=== PATIENT | female | born 1970 | race Caucasian/White ===

== ENCOUNTER 2021-08-30 06:18 | Emergency (ER) | payer SELFPAY ==
[2021-08-30] MEDS ORDERED: Sodium Chloride 0.9% 10 ML Syringe FLUSH PRN (07:03)
[2021-08-30] MEDS ORDERED: Sodium Chloride 0.9% 1,000 ML IV STA (07:03)
[2021-08-30] MEDS ORDERED: Ondansetron 4 MG/2 ML SDV IVPUSH ONE (07:03)
[2021-08-30] MEDS ORDERED: HYDROmorphone 1 MG/ML Syringe IVPUSH ONE (07:05)
[2021-08-30] MEDS ORDERED: Famotidine 20 MG/2 ML SDV IVPUSH ONE (07:05)
[2021-08-30] MEDS ORDERED: Iopamidol 612 MG/ML 100 ML Bottle IVPUSH ONE (07:31)
[2021-08-30] MEDS ORDERED: Diatrizoate Meglumine/Diatrizoate Sodium 37% 120 ML Bottle PO ONE (07:31)
[2021-08-30] MEDS: Sodium Chloride 0.9% 10 ML Syringe FLUSH PRN ×2 (07:40→08:21)
[2021-08-30] MEDS ORDERED: Pantoprazole 40 MG Vial IVPUSH ONE (09:13)
[2021-08-30 09:41] VITALS: BP 122/81; PULSE 64
== END 2021-08-30 09:50 | disposition home or self-care (01) ==
LOC: JD.ED 06:18
DX: K27.9 Peptic ulcer, site unspecified, unspecified as acute or chronic, without hemorrhage or perforation (principal); K29.80 Duodenitis without bleeding; I10 Essential (primary) hypertension; Z79.899 Other long term (current) drug therapy
CPT/HCPCS: 36415; 71045; 74177; 80053; 83690; 84484; 85025; 93005; C9113; J1170; J2405; J3490; J7030; Q9963; Q9967; 93010; 96374; 96375; 99283; 99284-25